=== PATIENT | female | born 1995 | race Hispanic/Latino ===

== ENCOUNTER 2018-09-19 12:45 | Outpatient (CLI) | payer BC ==
--- NOTE | 2018-09-19 13:47 | RAD ---
CHEST TWO VIEWS: INDICATIONS: Pneumonia. IMPRESSION: No pneumonia is seen. The lungs are clear. The cardiomediastinal silhouette is within normal limits . Mild thoracic scoliosis is similar appearing. POS: [facility]
== END 2018-09-19 12:46 | disposition home or self-care (01) ==
LOC: BICRAD 12:45
PROVIDERS: ATTEND Family Medicine
DX: J18.9 Pneumonia, unspecified organism (principal); M41.9 Scoliosis, unspecified
CPT/HCPCS: 71046

== ENCOUNTER 2019-01-19 08:00 | Outpatient (CLI) | payer BC ==
--- NOTE | 2019-01-19 08:43 | ULT ---
ULTRASOUND ABDOMEN: Date: 01/19/19 HISTORY: Abdominal pain. COMPARISON: None. FINDINGS: Real-time Arzate scale and color evaluation of the abdomen was performed. The pancreas is not well seen . Hepatic echotexture appears normal. Aorta and IVC are unremarkable. Gallbladder is normal. Common bile duct measures 3.0 mm. Portal vein is patent with antegrade flow. N o cholelithiasis. The liver measures 13.5 cm in length. The right kidney measures 9.8 x 5.5 x 4.0 cm without mass, hydr onephrosis, or abnormal calcifications. The left kidney measures 11.6 x 4.6 x 40 cm, without mass, h ydronephrosis, or abnormal calcifications. Spleen measures 8.0 cm in length. IMPRESSION: Normal exam. POS: [facility]
--- NOTE | 2019-01-19 09:07 | ULT ---
TRANSABDOMINAL AND TRANSVAGINAL PELVIC ULTRASOUND WITH BRINK SCALE AND COLOR FLOW AND SPECTRAL DOPPLER IMAGING: Date: 01/19/19 HISTORY: Pelvic pain. FINDINGS: The uterus measures 4.8 x 4.2 x 3.6 cm, without focal mass or endometrial fluid. The endometrium leilani ures 4.0 mm in thickness. The right ovary measure 4.0 x 3.4 x 2.1 cm and the left ovary measures 2.7 x 2.0 x 1.8 cm. There is a 3.2 cm septated cyst arising from the right ovary. Flow is demonstrated to both ovaries. No free fluid is seen. IMPRESSION: 3.2 cm septated right ovarian cyst. A follow-up exam is recommended in 8-10 weeks. POS: OFF
== END 2019-01-19 08:01 | disposition home or self-care (01) ==
LOC: BICULT 08:00
PROVIDERS: ATTEND Family Medicine
DX: R10.9 Unspecified abdominal pain (principal); R10.2 Pelvic and perineal pain; N83.201 Unspecified ovarian cyst, right side
CPT/HCPCS: 76700; 76856